=== PATIENT | male | born 1955 | race African-American/Black ===

== ENCOUNTER 2018-09-17 19:17 | Emergency (ER) | payer OTHER ==
[~2018-09-17] VITALS: Ht 172.7 cm; Wt 106.5 kg
[2018-09-17 19:24] VITALS: Ht 172.7 cm; Wt 106.5 kg
--- NOTE | 2018-09-17 21:19 | ERD ---
ER Documentation Chief Complaint Chief Complaint HTN; CHECKED TODAY WAS HIGH; FAMILY HX OF HTN; ASYMPTOMATIC HPI This is a 62-year-old male who presents for evaluation of asymptomatic hypertension. He is on lisinopril, he does take potassium supplements at home, he has history of hypokalemia. He denies any chest pain or shortness of breath, he has not had any hematuria, otherwise denies headache. ROS All systems reviewed and are negative except as per history of present illness. Allergies Allergies: Coded Allergies: No Known Allergy (Unverified , 09/17/18) PMhx/Soc History of Surgery: Yes (L knee ) Hx Cardiac Disorders: Yes (HTN) Hx Alcohol Use: No Hx Substance Use: No Hx Tobacco Use: Yes Smoking Status: Former smoker Physical Exam Vitals Vital Signs Date Temp Pulse Resp B/P (MAP) Pulse Ox O2 O2 Flow FiO2 Time Delivery Rate 09/17/18 98.5 60 18 176/97 100 Room Air 20:11 (123) 09/17/18 98.3 77 19 193/115 96 19:24 (141) Physical Exam Const: No acute distress Head: Atraumatic Eyes: Normal Conjunctiva ENT: Normal External Ears, Nose and Mouth. Neck: Full range of motion. No meningismus. Resp: Clear to auscultation bilaterally Cardio: Regular rate and rhythm, no murmurs Abd: Soft, non tender, non distended. Normal bowel sounds Skin: No petechiae or rashes Back: No midline or flank tenderness Ext: No cyanosis, or edema Neur: Awake and alert Psych: Normal Mood and Affect Result Diagram: 09/17/18203909/17/182039 Results 24 hrs Laboratory Tests Test 09/17/18 20:40 White Blood Count 6.4 10^3/ul Red Blood Count 4.69 10^6/ul Hemoglobin 14.1 g/dl Hematocrit 41.9 % Mean Corpuscular Volume 89.3 fl Mean Corpuscular Hemoglobin 30.1 pg Mean Corpuscular Hemoglobin Concent 33.7 g/dl Red Cell Distribution Width 12.7 % Platelet Count 215 10^3/UL Mean Platelet Volume 9.6 fl Immature Granulocytes % 0.200 % Neutrophils % 77.9 % Lymphocytes % 15.9 % Monocytes % 5.0 % Eosinophils % 0.8 % Basophils % 0.2 % Nucleated Red Blood Cells % 0.0 /100WBC Immature Granulocytes # 0.010 10^3/ul Neutrophils # 5.0 10^3/ul Lymphocytes # 1.0 10^3/ul Monocytes # 0.3 10^3/ul Eosinophils # 0.1 10^3/ul Basophils # 0.0 10^3/ul Nucleated Red Blood Cells # 0.0 10^3/ul Sodium Level 143 mmol/L Potassium Level 3.0 mmol/L Chloride Level 100 mmol/L Carbon Dioxide Level 34 mmol/L Anion Gap 9 Blood Urea Nitrogen 18 mg/dl Creatinine 1.12 mg/dl Est Glomerular Filtrat Rate mL/min > 60 mL/min Glucose Level 111 mg/dl Calcium Level 9.6 mg/dl Procedures/MDM This is a 62-year-old male presents for evaluation of asymptomatic hypertension. Labs were checked to evaluate kidney function as well as potassium, potassium was at 3.0, he is already on supplements, encourage oral intake, as he has no symptoms, I would not be recommended to acutely lower his blood pressure. Departure Diagnosis: Primary Impression: Hypertension Hypertension type: unspecified Qualified Codes: I10 - Essential (primary) hypertension Condition: Stable MELIA MILAN MD Sep 17, 2018 21:19
[2018-09-17 21:49] VITALS: BP 175/99; PULSE 59; RESP 18
== END 2018-09-17 21:51 | disposition home or self-care (01) ==
LOC: E/R 19:17
DX: I10 Essential (primary) hypertension (principal); Z87.891 Personal history of nicotine dependence
CPT/HCPCS: 36415; 80048; 85025; 99283